=== PATIENT | male | born 1960 ===

== ENCOUNTER 2018-02-28 15:36 | Emergency (ER) | payer OTHER ==
[2018-02-28 16:05] VITALS: BP 163/95
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
== END 2018-02-28 17:30 | disposition home or self-care (01) ==
LOC: UCEAST 15:36
DX: S01.81XA Laceration without foreign body of other part of head, initial encounter (principal); S06.2X0A Diffuse traumatic brain injury without loss of consciousness, initial encounter; V48.0XXA Car driver injured in noncollision transport accident in nontraffic accident, initial encounter; Y93.89 Activity, other specified; Y92.410 Unspecified street and highway as the place of occurrence of the external cause; Y99.0 Civilian activity done for income or pay; M25.512 Pain in left shoulder; M25.511 Pain in right shoulder; Z72.0 Tobacco use
CPT/HCPCS: 70450; 99202; G0463